=== PATIENT | male | born 1970 | race Caucasian/White ===

== ENCOUNTER 2018-01-30 14:29 | Inpatient (IN) | payer BC ==
[~2018-01-30 14:29] MED LIST: Iopamidol 370 76% 50 ML VIAL FS ONE
[2018-01-30 15:12] LABS: #Eosinphils 0.1 thou/uL (0.0-0.7); #Lymphocytes 0.9 thou/uL (1.20-3.40); #Monocytes 1.2 thou/uL (0.11-0.59); #Neutrophils 10.2 thou/uL (1.40-6.50); %Basophils 0.3 % (0.0-1.0); %Eosinophils 0.7 % (0.0-10.0); %Lymphocytes 7.2 % (21.0-51.0); %Monocytes 9.9 % (0.0-10.0); %Neutrophils 81.9 % (42.0-75.0); Hemoglobin 14.3 g/dL (14.0-18.0); Mean Corpuscular HGB CONC 32.7 g/dL (32.0-36.0); Mean Corpuscular Hemoglobin 27.8 pg (27.0-31.0); Mean Platelet Volume 9.3 fL (7.4-10.4); Platelet Count 279 thou/uL (130-400); RBC Distribution Width 13.1 % (11.5-14.5); Red Blood Cell (RBC) Count 5.13 mill/uL (4.70-6.10); White Blood Cell (WBC) Count 12.4 thou/uL (4.8-10.8)
[2018-01-30 15:35] LABS: ALT (SGPT) 27 U/L (8-55); AST (SGOT) 19 U/L (5-34); Albumin 3.6 g/dL (3.5-5.0); Alkaline Phosphatase 190 U/L (40-150); Anion Gap 13 mmol/L (10-20); BUN (Urea Nitrogen) 7 mg/dL (8.9-20.6); Bilirubin, Total 0.7 mg/dL (0.2-1.2); Calc. Creatinine Clearance 0 mL/min (70-130); Calcium 9.2 mg/dL (7.8-10.44); Carbon Dioxide 27 mmol/L (22-29); Chloride 100 mmol/L (98-107); Estimated GFR-MDRD Greater than 90; Globulin 3.5 g/dL (2.4-3.5); Glucose 124 mg/dL (70-105); Protein, Total 7.1 g/dL (6.0-8.3); Sodium 137 mmol/L (136-145)
[2018-01-30 15:43] LABS: Potassium 2.8 mmol/L (3.5-5.1)
[2018-01-30 16:52] LABS: Bilirubin Negative (Negative); Blood, Urine Negative (Negative); Clarity CLEAR (Clear); Glucose, Urine (Dipstick) Negative (Negative); Leukocyte Negative (Negative); Nitrite Negative (Negative); Protein, Urine (Dipstick) Negative (Neg-Trace); Specific Gravity, Urine 1.016 (1.002-1.036); Urobilinogen 0.2 mg/dL (0.2-1.0)
[2018-01-30] MEDS ORDERED: Famotidine/PF 20 mg/2ml Vial ONE (17:11)
[2018-01-30] MEDS ORDERED: diphenhydrAMINE 50 MG/ML VIAL ONE (17:11)
[2018-01-30] MEDS ORDERED: methylPREDNISolone Sod Succ/PF 125 MG/2 ML VIAL ONE ×2 (17:11→17:12)
[2018-01-30] MEDS ORDERED: Morphine 4 MG/ML VIAL ONE ×2 (17:21→20:17)
[2018-01-30 18:31] LABS: PTT 33.9 SEC (22.9-36.1); Prothrombin Time 13.7 SEC (12.0-14.7)
--- NOTE | 2018-01-30 18:42 | CT ---
NONCONTRAST CT ABDOMEN AND PELVIS: Date: 01/30/18 HISTORY: Complicated diverticulitis. Patient has had abdominal pain for 2 weeks. Patient reports bruising to l eft lower quadrant of the abdomen. COMPARISON: None available. FINDINGS: Rectal contrast was administered during the exam, but contrast only extends to the region of the junc tion of the distal descending colon and sigmoid colon. There is evidence of colonic diverticulosis wi th colonic diverticulitis seen in the distal descending colon and proximal sigmoid colon. There is mi ld thickening of the alcantara of the colon at the level of the junction of the distal descending colon a nd rectum. There are mild pericolonic inflammatory changes seen adjacent to the sigmoid colon. There is a fluid and air collection seen in the left anterolateral aspect of the left lower quadrant/ upper pelvis, with this collection measuring approximately 9.5 cm x 7.6 cm x 5.0 cm maximal dimension . This is worrisome for abscess collection given foci of gas. There is a small pericardial effusion. There is a small right pleural effusion with very tiny left pleural effusion. Atelectasis is present at each lung base. There is diminished attenuation of the liver suggesting diffuse fatty infiltration. The liver is enla rged in craniocaudal dimensions measuring 20.0 cm. There is a fat density area seen within the posterior aspect mid portion left kidney measuring 12.0 m m, which may represent either a peripherally located small angiomyolipoma or peripheral defect relate d to an area of scarring. There is no hydronephrosis, and no renal or ureteral calculi are seen. The spleen, pancreas, bilateral adrenal glands, and urinary bladder have a normal CT appearance. The appendix appears to be normal in caliber. There are minimal inflammatory changes seen in this reg ion, but these are primarily related to a region of the colon. There is a small, fat-containing right inguinal hernia. Degenerative changes seen in the lower thoracic spine. IMPRESSION: 1. Limited examination secondary to lack of intravenous contrast. 2. Rectal contrast was administered during this exam, and contrast only extends to the level of the proximal sigmoid colon. Colon in this region does appear to be mildly thickened with colonic divertic kingsley seen. There are mild inflammatory changes adjacent to this region within the left aspect of the p brielle, and findings may be related to diverticulitis. 3. Fluid and air collection seen in the anterolateral aspect of the left lower quadrant/upper pelvis , likely related to abscess collection. 4. Small right pleural effusion with tiny left pleural effusion and atelectasis. 5. Tiny pericardial effusion. 6. Hepatomegaly with fatty infiltration of the liver. 7. Small, fat-containing umbilical hernia and small fat-containing right inguinal hernia. POS: [facility]
[2018-01-30] MEDS ORDERED: metroNIDAZOLE 500 MG in Premix Bag 1 BAG IVPB SCH (19:00)
[2018-01-30] MEDS ORDERED: Piperacillin/Tazobactam 4.5 GM in Sodium Chloride 0.9% 100 ML IVPB SCH (19:00)
[2018-01-30] MEDS ORDERED: Ondansetron HCl/PF 4 MG/2 ML Vial IVP PRN (20:51)
[2018-01-30] MEDS ORDERED: Ondansetron ODT 4 MG TAB SL PRN (20:51)
[2018-01-30] MEDS ORDERED: Acetaminophen 325 MG TAB PO PRN (20:51)
[2018-01-30] MEDS ORDERED: HYDROcodone/Acetaminophen 5/325 mg Tablet PO PRN ×2 (20:51)
[2018-01-30] MEDS: NS 0.9% w/ 20 MEQ KCL 1,000 ML IV SCH (22:30)
[2018-01-30 22:47] VITALS: BMI 43.3
[2018-01-30] MEDS ORDERED: Morphine 4 MG/ML VIAL IV PRN (23:48)
[2018-01-31] MEDS: Morphine 4 MG/ML VIAL IV PRN ×9 (00:08→23:10)
[2018-01-31] MEDS: D5 1/2 NS w/20 mEq KCL 1,000 ML IV SCH ×4 (06:15→21:13)
[2018-01-31] MEDS: NS 0.9% w/ 20 MEQ KCL 1,000 ML IV SCH (08:22)
[2018-01-31] MEDS ORDERED: Potassium Chloride 20 MEQ/100 ML PREMIX BAG IVPB SCH (09:15)
--- NOTE | 2018-01-31 09:24 | HP ---
CHIEF COMPLAINT: Left lower quadrant abdominal pain. HISTORY OF PRESENT ILLNESS: Patient is a 47-year-old male with a 3-week history of left lower quadra nt abdominal pain. He went to the [facility] ER and was diagnosed with diverticulitis. He was given or al antibiotics and ibuprofen. He had a follow up with Dr. Lopez in GI. He was not getting better, so he increased the antibiotics, continued to get worse. Apparently, had an allergic reaction to the I V contrast from the CT scan that showed he had diverticulitis and developed a rash that was pruritic that he scratched it. He has had low grade fevers. He says that he has been having loose stools. PAST MEDICAL HISTORY: Significant for obesity and hypertension. PAST SURGICAL HISTORY: He has had back surgery, knee surgery and hernia surgery. MEDICATIONS: He is on lisinopril. Also, he is on metronidazole and something else. SOCIAL HISTORY: He has an allergy to IV DYE. SOCIAL HISTORY: Single. 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 No tobacco, occasional alcoho l. FAMILY HISTORY: Prostate cancer, heart disease, and diverticulitis. PHYSICAL EXAMINATION: VITAL SIGNS: Temperature 97.8, pulse 60, blood pressure 136/86. GENERAL: He is a morbidly obese male lying still in no apparent distress. HEENT: Unremarkable. LUNGS: Clear. HEART: Regular rate and rhythm. ABDOMEN: Obese. He has multiple scratch aburto and punctate pustules that he scratched. He has a la rge 15 cm erythematous ecchymosis in the left lower quadrant, it is mildly tender. IMAGING DATA AND LABORATORY DATA: He had a CT scan showing that he has 9 cm abscess just under the f ascia in the left lower quadrant where this rash is. His white count is 12.4, hemoglobin and hemato crit 14 and 45, platelet count 279. Electrolytes show an elevated glucose of 124, but low potassium at 2.8. ASSESSMENT: Diverticular abscess, hypokalemia, and morbid obesity. PLAN: Percutaneous drainage of abscess, antibiotics, bowel rest.
[2018-01-31] MEDS: Potassium Chloride 20 MEQ, Admixture Fee 1 EACH in Sodium Chloride 0.9% 100 ML IVPB SCH ×2 (10:10→18:36)
[2018-01-31] MEDS ORDERED: Midazolam HCl 2 mg/2 ml Vial ONE (12:55)
[2018-01-31] MEDS ORDERED: Fentanyl 100 MCG/2 ML VIAL ONE (12:55)
[2018-01-31] MEDS ORDERED: Meropenem 2 GM in Admixture Fee 1 EACH IVPB SCH (14:00)
[2018-01-31] MEDS: Meropenem 2 GM, Admixture Fee 1 EACH in Sodium Chloride 0.9% 100 ML IVPB SCH ×2 (14:49→21:06)
[2018-01-31 15:36] LABS: BF Color White; Clarity Cloudy/Turbid (Clear)
[2018-01-31 15:37] LABS: BF WBC/Nonhematics Ct. - Manua 984000 /cumm; RBC Count-Automated 1090000 /cumm; Tube # EDTA; WBC Background Count 0.01
[2018-02-01] MEDS: Potassium Chloride 20 MEQ, Admixture Fee 1 EACH in Sodium Chloride 0.9% 100 ML IVPB SCH ×2 (01:08→11:57)
[2018-02-01] MEDS: Morphine 4 MG/ML VIAL IV PRN ×8 (01:16→23:03)
[2018-02-01] MEDS: Meropenem 2 GM, Admixture Fee 1 EACH in Sodium Chloride 0.9% 100 ML IVPB SCH ×3 (05:14→21:33)
[2018-02-01] MEDS: D5 1/2 NS w/20 mEq KCL 1,000 ML IV SCH ×3 (05:20→23:08)
--- NOTE | 2018-02-01 10:34 | PRG ---
DATE OF SERVICE: 02/01/2018 The patient is feeling much better since abscess has been drained, still has some local tenderness. He is tolerating ice chips and sips. He is ambulating. PHYSICAL EXAMINATION: VITAL SIGNS: Temperature is 97.6, pulse 65, blood pressure 134/85. He has had out [address] loomis. On examination the actual cellulitis is significantly improved, but he has a different type of rash a cross his lower abdomen that looks more like rash he has on other parts of his body as a result of a contrast allergy, but is not tender. He is feeling better. The plan is to start him on clear liquids, keep ambulating. Continue drainage. Continue antibiotics .
[2018-02-01] MEDS: Enoxaparin Sodium 40 MG/0.4 ML SYRINGE SC SCH (19:50)
[2018-02-02] MEDS: Morphine 4 MG/ML VIAL IV PRN ×7 (03:23→22:32)
[2018-02-02] MEDS: D5 1/2 NS w/20 mEq KCL 1,000 ML IV SCH ×3 (06:39→21:14)
[2018-02-02] MEDS: Meropenem 2 GM, Admixture Fee 1 EACH in Sodium Chloride 0.9% 100 ML IVPB SCH ×3 (06:39→21:14)
[2018-02-02 08:13] LABS: Anion Gap 11 mmol/L (10-20); BUN (Urea Nitrogen) 10 mg/dL (8.9-20.6); Calc. Creatinine Clearance 218 mL/min (70-130); Calcium 8.3 mg/dL (7.8-10.44); Carbon Dioxide 29 mmol/L (22-29); Chloride 101 mmol/L (98-107); Estimated GFR-MDRD Greater than 90; Glucose 114 mg/dL (70-105); Potassium 3.2 mmol/L (3.5-5.1); Sodium 138 mmol/L (136-145)
[2018-02-02 08:28] LABS: Hemoglobin 13.7 g/dL (14.0-18.0); Mean Corpuscular Hemoglobin 28.1 pg (27.0-31.0); Mean Corpuscular Volume 85.1 fl (80.0-94.0); Mean Platelet Volume 9.1 fL (7.4-10.4); Platelet Count 278 thou/uL (130-400); RBC Distribution Width 13.3 % (11.5-14.5); Red Blood Cell (RBC) Count 4.89 mill/uL (4.70-6.10)
[2018-02-02 09:28] LABS: Band 3 % (5-11); Lymphocytes 21 % (21-51); MDiff Complete? YES; Metamyelocyte 2 % (0-0); Monocytes 4 % (0-10); Neutrophil 69 % (42-75); RBC Morphology Normal; Reactive Lymphocytes 1 % (0-10)
--- NOTE | 2018-02-02 10:15 | CT ---
CT GUIDED PERITONEAL ABSCESS DRAINAGE: HISTORY: Diverticular abscess. COMPARISON: CT prior day, 01/30/18. FINDINGS: The patient is brought to the CT suite. All questions were answered. Informed consent was obtained. Timeout was performed. The patient's left lower quadrant of the abdomen was prepped and draped in normal sterile fashion. A pproximately 4 mL of Lidocaine was instilled into the superficial and deep soft tissues. Using a 17-gauge introducer, the abscess was accessed. Over a wire, a fascia dilator was used to dil ate the soft tissues. Subsequently, an 8 British drain was placed. 20 mL of purulent fluid was aspir ated. The drain was actively draining during the examination. IMPRESSION: Technically successful CT-guided drainage placement. POS: [facility]
[2018-02-02] MEDS: Enoxaparin Sodium 40 MG/0.4 ML SYRINGE SC SCH (19:54)
[2018-02-03] MEDS: Morphine 4 MG/ML VIAL IV PRN ×6 (01:21→20:26)
[2018-02-03] MEDS: Meropenem 2 GM, Admixture Fee 1 EACH in Sodium Chloride 0.9% 100 ML IVPB SCH ×3 (06:13→21:51)
[2018-02-03] MEDS: D5 1/2 NS w/20 mEq KCL 1,000 ML IV SCH ×2 (09:47→17:52)
[2018-02-03] MEDS: Enoxaparin Sodium 40 MG/0.4 ML SYRINGE SC SCH (20:28)
[2018-02-04] MEDS: D5 1/2 NS w/20 mEq KCL 1,000 ML IV SCH ×4 (00:10→15:02)
[2018-02-04] MEDS: Morphine 4 MG/ML VIAL IV PRN ×6 (00:15→21:23)
[2018-02-04] MEDS: Meropenem 2 GM, Admixture Fee 1 EACH in Sodium Chloride 0.9% 100 ML IVPB SCH ×3 (05:06→21:22)
--- NOTE | 2018-02-04 10:28 | CT ---
CT ABDOMEN AND PELVIS WITHOUT CONTRAST: Date: 02/04/18 HISTORY: Abscess follow-up. FINDINGS: Comparison made with exam of 01/30/18. There has been interval placement of a left lower quadrant drainage catheter in the 7.6 x 5.0 x 9.5 cm abscess in the anterolateral aspect of the left lower quadrant/upper pelvis noted on the previous study. There is significant interval improvement with a residual 2.7 x 1.0 x 5.2 cm abscess on the cu rrent study. Colonic diverticulosis again seen. No new abscess is identified Small foci of air in the subcutaneous fat are likely due to injections. Small right pleural effusion is again noted. No free intraperitone al air or fluid is identified. Fatty infiltration of the liver is again seen. 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 There are degenerative changes in the spine. There is no evidence of aneurysmal dilatation of the abdominal aorta. No urinary tract asim culi or obstruction seen. IMPRESSION: Significant interval reduction in size of the left lower quadrant abscess since 01/30/[address] acement of a drainage catheter. POS: [facility]
[2018-02-04] MEDS: Enoxaparin Sodium 40 MG/0.4 ML SYRINGE SC SCH (21:22)
[2018-02-05] MEDS: Morphine 4 MG/ML VIAL IV PRN ×4 (01:04→11:33)
[2018-02-05] MEDS: D5 1/2 NS w/20 mEq KCL 1,000 ML IV SCH ×2 (01:29→08:19)
[2018-02-05] MEDS: Meropenem 2 GM, Admixture Fee 1 EACH in Sodium Chloride 0.9% 100 ML IVPB SCH ×2 (05:22→13:03)
--- NOTE | 2018-02-05 12:07 | DIS ---
DATE OF ADMISSION: 01/30/2018 DATE OF DISCHARGE: 02/05/2018 ADMIT DIAGNOSIS: Acute diverticulitis with abscess. DISCHARGE DIAGNOSIS: Acute diverticulitis with abscess. PROCEDURES PERFORMED: Percutaneous drainage of abdominal abscess by Interventional Radiology. STAFF: Balta Gaming M.D. CONDITION AT DISCHARGE: Improved. HOSPITAL COURSE: See hospital chart for details of hospitalization. FOLLOWUP: The patient to follow up with Dr. Gaming on . DISCHARGE MEDICATIONS: Prescriptions given for Levaquin, Flagyl, Ultram and Zofran.
[2018-02-05 12:15] VITALS: BP 143/93; TEMP 97.8
== END 2018-02-05 14:17 | disposition home or self-care (01) | DRG 392 ==
LOC: ERS 14:29 → SURG B 22:13
PROVIDERS: ADMIT Surgery; ATTEND Surgery
PROC: 0J9830Z Drainage of Abdomen Subcutaneous Tissue and Fascia with Drainage Device, Percutaneous Approach (ICD-10-PCS; principal; 2018-01-30)
DX: K57.20 Diverticulitis of large intestine with perforation and abscess without bleeding (principal); E66.01 Morbid (severe) obesity due to excess calories; L02.211 Cutaneous abscess of abdominal wall; Z68.41 Body mass index [BMI] 40.0-44.9, adult; L03.311 Cellulitis of abdominal wall; I10 Essential (primary) hypertension; E87.6 Hypokalemia; L27.1 Localized skin eruption due to drugs and medicaments taken internally; T50.8X5A Adverse effect of diagnostic agents, initial encounter; F17.210 Nicotine dependence, cigarettes, uncomplicated; Z91.041 Radiographic dye allergy status
CPT/HCPCS: 36415; 49020; 74176; 77002; 80048; 80053; 81003; 83690; 85025; 85060; 85610; 85730; 87070; 87077; 87186; 87205; 89051; 96361; 96365; 96367; 96375; 96376; 99406; A4216; C1729; J1200; J1650; J2185; J2250; J2270; J2543; J2930; J3010; J3480; J7050; S0028

== ENCOUNTER 2018-03-08 07:54 | Outpatient (CLI) | payer BC, OTHER ==
--- NOTE | 2018-03-08 10:48 | CT ---
ABDOMEN AND PELVIS CT SCAN WITH IV CONTRAST: History: 47-year-old male with history of colonic diverticulitis. Right lower abdominal pain for 1.5 months. A bscess on the left side has been drained. Comparison: 02-04-18 FINDINGS: The lung bases are clear. There is some fatty change in the liver. The gallbladder, pancreas, spleen, and adrenal glands are unremarkable. There is small focal scar in the posterior aspect of the mid le ft kidney. No renal calculus or acute obstruction. Normal appearing appendix. There is some minima l scattered colonic diverticulosis without acute diverticulitis. The previously noted abscess has res olved when compared to the prior 02-04-18 study. A slightly fatty right inguinal canal. IMPRESSION: No CT evidence for acute process. No abscess or abnormal fluid collection. Previously noted left side d abscess appears to have been completely drained with no significant residual. Normal appearing appe ndix. Somewhat fatty right inguinal canal. Fatty changes of the liver. Stable left renal scar. No new mass, abscess, or abnormal fluid collection or other acute process. POS: [facility]
[2018-03-08] MEDS ORDERED: Iopamidol 370 76% 100 ML VIAL ONE (13:05)
== END 2018-03-08 07:55 | disposition home or self-care (01) ==
LOC: CT 07:54
PROVIDERS: ATTEND Surgery
DX: K57.32 Diverticulitis of large intestine without perforation or abscess without bleeding (principal); R10.30 Lower abdominal pain, unspecified
CPT/HCPCS: 74177

== ENCOUNTER 2018-03-24 15:43 | Outpatient (CLI) | payer BC ==
[2018-03-24 16:17] LABS: #Eosinphils 0.2 thou/uL (0.0-0.7); #Lymphocytes 1.9 thou/uL (1.20-3.40); #Monocytes 0.5 thou/uL (0.11-0.59); %Basophils 0.6 % (0.0-1.0); %Lymphocytes 28.2 % (21.0-51.0); %Monocytes 7.8 % (0.0-10.0); %Neutrophils 60.5 % (42.0-75.0); Hemoglobin 14.3 g/dL (14.0-18.0); Mean Corpuscular HGB CONC 32.6 g/dL (32.0-36.0); Mean Corpuscular Volume 85.8 fl (80.0-94.0); Mean Platelet Volume 9.8 fL (7.4-10.4); Platelet Count 223 thou/uL (130-400); RBC Distribution Width 13.4 % (11.5-14.5); Red Blood Cell (RBC) Count 5.11 mill/uL (4.70-6.10); White Blood Cell (WBC) Count 6.7 thou/uL (4.8-10.8)
[2018-03-24 16:24] LABS: Hemoglobin A1c 5.9 % (4.0-6.0)
[2018-03-24 16:38] LABS: ALT (SGPT) 17 U/L (8-55); AST (SGOT) 12 U/L (5-34); Albumin 3.9 g/dL (3.5-5.0); Alkaline Phosphatase 115 U/L (40-150); Anion Gap 11 mmol/L (10-20); BUN (Urea Nitrogen) 11 mg/dL (8.9-20.6); Bilirubin, Direct 0.1 mg/dL (0.1-0.3); Bilirubin, Total 0.3 mg/dL (0.2-1.2); Calc. Creatinine Clearance 0 mL/min (70-130); Calcium 8.7 mg/dL (7.8-10.44); Carbon Dioxide 24 mmol/L (22-29); Chloride 110 mmol/L (98-107); Estimated GFR-MDRD Greater than 90; Globulin 2.9 g/dL (2.4-3.5); Glucose 122 mg/dL (70-105); Potassium 3.7 mmol/L (3.5-5.1); Protein, Total 6.8 g/dL (6.0-8.3); Sodium 141 mmol/L (136-145)
== END 2018-03-24 15:44 | disposition home or self-care (01) ==
LOC: LABBT 15:43
PROVIDERS: ATTEND Surgery
DX: Z01.812 Encounter for preprocedural laboratory examination (principal); K57.92 Diverticulitis of intestine, part unspecified, without perforation or abscess without bleeding
CPT/HCPCS: 80053; 80076; 83036; 85025; 93005; 93010

== ENCOUNTER 2018-03-24 16:00 | Inpatient (IN) | payer BC, OTHER ==
[2018-03-24 16:14] VITALS: BMI 41.0
[2018-03-28] MEDS ORDERED: cefOXitin 2 GM in Sodium Chloride 0.9% 100 ML IVPB SCH (06:15)
[2018-03-28] MEDS ORDERED: Midazolam HCl 2 mg/2 ml Vial ONE ×2 (06:17→06:58)
[2018-03-28] MEDS ORDERED: Fentanyl 250 MCG/5 ML VIAL ONE (06:17)
[2018-03-28] MEDS ORDERED: Fentanyl 100 MCG/2 ML VIAL ONE ×4 (06:58→12:20)
[2018-03-28] MEDS ORDERED: Ketamine 50 MG/ML VIAL ONE (07:09)
[2018-03-28] MEDS ORDERED: Albumin 5% 500 ML ONE (07:09)
[2018-03-28] MEDS ORDERED: cefOXitin 2 GM VIAL ONE (08:12)
[2018-03-28] MEDS ORDERED: Bupivacaine/Epinephrine 0.25% 30 ML VIAL ONE (08:12)
[2018-03-28] MEDS ORDERED: Promethazine HCl 25 MG/ML VIAL SLOW IVP PRN (08:22)
[2018-03-28] MEDS ORDERED: Meperidine HCl/PF 25 MG/ML VIAL SLOW IVP PRN (08:22)
[2018-03-28] MEDS ORDERED: hydrALAZINE 20 MG/ML VIAL SLOW IVP PRN (09:57)
[2018-03-28] MEDS ORDERED: Morphine 4 MG/ML VIAL SLOW IVP PRN ×2 (09:57)
[2018-03-28] MEDS ORDERED: Promethazine HCl 25 MG/ML VIAL IM PRN (09:57)
[2018-03-28] MEDS ORDERED: Ondansetron HCl/PF 4 MG/2 ML Vial IVP PRN (09:57)
[2018-03-28] MEDS ORDERED: Insulin Regular 300 UNITS/3 ML VIAL ONE (10:28)
[2018-03-28] MEDS ORDERED: Glycopyrrolate 0.2 MG/ML 5 ML SYRINGE ONE (11:19)
[2018-03-28] MEDS ORDERED: Ondansetron HCl/PF 4 MG/2 ML Vial ONE (11:19)
[2018-03-28] MEDS ORDERED: Lidocaine 1% PF 5 ML VIAL ONE (11:19)
[2018-03-28] MEDS ORDERED: PHENYLEPHRINE-NS 100 MCG/ML 10 ML SYRINGE ONE (11:19)
[2018-03-28] MEDS ORDERED: Dexamethasone 20 MG/5 ML VIAL ONE (11:19)
[2018-03-28] MEDS ORDERED: PROPOFOL 200 MG/20 ML VIAL ONE (11:19)
[2018-03-28] MEDS ORDERED: Ketorolac Tromethamine 30 MG/ML VIAL ONE (11:19)
[2018-03-28] MEDS ORDERED: ePHEDrine/0.9% NaCl/PF SYRINGE 50 mg/10 ml ONE (11:19)
[2018-03-28] MEDS ORDERED: INSULIN REGULAR IVPB SCH (12:30)
[2018-03-28] MEDS ORDERED: SODIUM CHLORIDE IVPB SCH (12:30)
[2018-03-28] MEDS ORDERED: ADMIXTURE FEE IVPB SCH (12:30)
[2018-03-28] MEDS ORDERED: Bupivacaine HCl 0.5%/Epinephrine 1:200,000/PF 30 ml Vial ONE (12:31)
[2018-03-28] MEDS: Acetaminophen 1,000 MG in Premix Bag 1 BAG IVPB SCH ×3 (14:39→23:23)
[2018-03-28] MEDS: Morphine 4 MG/ML VIAL SLOW IVP PRN ×3 (14:40→20:51)
[2018-03-28] MEDS: Ketorolac Tromethamine 30 MG/ML VIAL IVP SCH ×3 (14:40→23:22)
[2018-03-28] MEDS: D5 1/2 NS w/20 mEq KCL 1,000 ML IV SCH ×2 (16:05→21:06)
[2018-03-28] MEDS: cefOXitin 2 GM in Sodium Chloride 0.9% 100 ML IVPB SCH ×2 (16:24→23:25)
--- NOTE | 2018-03-28 17:30 | OP ---
PREOPERATIVE DIAGNOSIS: History of diverticulitis with microperforation. SURGEON: Balta Gaming M.D. PROCEDURE PERFORMED: Laparoscopic sigmoid colectomy. INDICATIONS: This is a 47-year-old male, who had come in with a diverticular perforation and contain ed abscess that was percutaneously drained in January. He was treated with antibiotics and resolved. No evidence of inflammation on recent CT. FINDINGS: There was still some thickening of the sigmoid colon in the area, which was adherent to th e abdominal wall where the percutaneous drain had been. It was at mid sigmoid colon. PROCEDURE IN DETAIL: After informed consent was obtained, the patient was taken to the operating [facility] and given general endotracheal anesthesia. He has undergone a mechanical bowel prep at home. His abdomen was prepped and draped in usual fashion. He had had TAP blocks, so a 5-mm incision was perfo rmed right lateral wall. Veress needle inserted. Drop test performed. Pneumoperitoneum was created to a volume of 2 liters of carbon dioxide. Utilizing a bladeless 5-mm trocar and 0-degree laparosco pe, direct visual entry in the abdominal cavity was performed. Pneumoperitoneum was created to a pre ssure of 15 mmHg. Two 5-mm ports were placed, one in the right upper quadrant and one in the right l ower quadrant. The omentum was still attached to the abdominal wall, but it came down very easily. The mesentery was incised, and blunt and sharp dissection was used to try and locate the ureter. He was morbidly obese and I could not find the ureter, so I wanted to stay right close to the colon wall hand-assisted port in the left lower quadrant. This allowed me to very carefully dissect the mesentery and divided with the LigaSure. Distally, the colon was divided just above the rectum with a linear 60 mm green load stapler x2. Then, the mesentery further divided up to where the colon was normal and the colon was also mobilized along the white line of Toldt, then this colon was brought ou t through the hand-assisted port. A Chyna clamp was placed distally, it was divided with a knife an d then there were some bleeders that were ligated with 3-0 Vicryl ties. A 29 EEA anvil was then inse rted and brought out through the lateral wall and then the end of the colon was closed with a linear 60 mm green load stapler. Then, this anvil was inserted intra-abdominally and pneumoperitoneum reest ablished. My assistant strength coach went below and placed the EEA transanally and the spike was brought out mid s taple line. It was connected to the anvil, closed, held for 30 seconds, then fired, then removed ___ __ checked were both intact. The proximal colon was then clamped with fingers by grabbing it and ins ufflated with air with the proctoscope under water, there was no air leak. The colon decompressed. Hemostasis assured. A 12-mm port had been placed to replace the 5-mm port in the right lower quadran t. This was closed with a GraNee needle and 0 Vicryl suture. Hemostasis was assured. Trocars and r etractors removed. The abdominal wall was closed transversely in the left lower quadrant with a runn ing loop #1 PDS. Subcutaneous irrigated, hemostasis assured with electrocautery. Subcutaneous reapp roximated with interrupted 3-0 Vicryl. Skin closed with a running subcuticular 4-0 Rapide. Dermabon d applied. The patient tolerated the procedure well and was transferred to recovery in good conditio n. Sponge and needle count verified correct x2.
[2018-03-28] MEDS: Famotidine/PF 20 mg/2ml Vial SLOW IVP SCH (21:02)
[2018-03-28] MEDS: Famotidine 20 MG TAB PO SCH (21:02)
[2018-03-29] MEDS: Morphine 4 MG/ML VIAL SLOW IVP PRN ×8 (01:17→23:13)
[2018-03-29] MEDS: D5 1/2 NS w/20 mEq KCL 1,000 ML IV SCH (01:18)
[2018-03-29 04:42] LABS: #Lymphocytes 1.5 thou/uL (1.20-3.40); #Neutrophils 7.9 thou/uL (1.40-6.50); %Basophils 0.2 % (0.0-1.0); %Eosinophils 0.2 % (0.0-10.0); %Lymphocytes 14.7 % (21.0-51.0); %Monocytes 9.8 % (0.0-10.0); %Neutrophils 75.2 % (42.0-75.0); Hemoglobin 13.4 g/dL (14.0-18.0); Mean Corpuscular HGB CONC 32.6 g/dL (32.0-36.0); Mean Corpuscular Hemoglobin 27.6 pg (27.0-31.0); Mean Corpuscular Volume 84.6 fl (80.0-94.0); Mean Platelet Volume 9.9 fL (7.4-10.4); Platelet Count 214 thou/uL (130-400); RBC Distribution Width 13.2 % (11.5-14.5); Red Blood Cell (RBC) Count 4.87 mill/uL (4.70-6.10); White Blood Cell (WBC) Count 10.5 thou/uL (4.8-10.8)
[2018-03-29 04:50] LABS: Anion Gap 14 mmol/L (10-20); BUN (Urea Nitrogen) 16 mg/dL (8.9-20.6); Calc. Creatinine Clearance 180 mL/min (70-130); Carbon Dioxide 23 mmol/L (22-29); Chloride 103 mmol/L (98-107); Estimated GFR-MDRD 86; Potassium 3.2 mmol/L (3.5-5.1); Sodium 137 mmol/L (136-145)
[2018-03-29 04:51] LABS: Calcium 8.4 mg/dL (7.8-10.44); Glucose 129 mg/dL (70-105)
[2018-03-29] MEDS: Ketorolac Tromethamine 30 MG/ML VIAL IVP SCH ×4 (05:30→23:22)
[2018-03-29] MEDS: Acetaminophen 1,000 MG in Premix Bag 1 BAG IVPB SCH (05:30)
[2018-03-29] MEDS: Famotidine 20 MG TAB PO SCH ×2 (07:23→08:22)
[2018-03-29] MEDS ORDERED: Dextrose 5% in Water 1,000 ML IV PRN (07:42)
[2018-03-29] MEDS ORDERED: Dextrose 50% Abboject 50 ML SYRINGE SLOW IVP PRN (07:42)
[2018-03-29] MEDS: Enoxaparin Sodium 40 MG/0.4 ML SYRINGE SC SCH (08:22)
[2018-03-29] MEDS: Famotidine/PF 20 mg/2ml Vial SLOW IVP SCH ×2 (08:22→20:33)
[2018-03-29] MEDS: 1/2 NS w/KCL 20 mEq 1,000 ML IV SCH ×3 (08:23→23:26)
--- NOTE | 2018-03-29 08:32 | PRG ---
DATE OF SERVICE: 03/29/2018 The patient is postoperative day #1 from laparoscopic sigmoid colectomy. He is having moderate lower abdominal pain, no nausea or vomiting. He has been ambulating, he still has a Herr in place. PHYSICAL EXAMINATION: VITAL SIGNS: Temperature is 98, pulse 63, blood pressure 116/69. GENERAL: He is awake, alert, in no apparent distress. ABDOMEN: The incisions are healing well. There is no evidence of infection. No abdominal distention . Urine output is 900. LABORATORY DATA: His white count is 10, H&H 13 and 41, platelet count up 214. His glucose is 114. Electrolytes are fine. His potassium is a little low at 3.2. ASSESSMENT: Stable. PLAN: Sips of clear liquids, ambulate. We will transfer to the floor.
[2018-03-29] MEDS ORDERED: Insulin Glargine 4 UNITS in Pre-Filled Syringe 1 EACH SC SCH ×2 (12:00→15:30)
[2018-03-29] MEDS: Pantoprazole 40 MG VIAL IVP SCH (20:33)
[2018-03-30] MEDS: Morphine 4 MG/ML VIAL SLOW IVP PRN ×6 (01:33→21:39)
[2018-03-30] MEDS: Ketorolac Tromethamine 30 MG/ML VIAL IVP SCH ×3 (06:39→18:05)
[2018-03-30] MEDS ORDERED: Morphine 4 MG/ML VIAL SLOW IVP PRN ×2 (07:44)
[2018-03-30] MEDS: 1/2 NS w/KCL 20 mEq 1,000 ML IV SCH ×2 (08:43→16:27)
[2018-03-30] MEDS: Famotidine/PF 20 mg/2ml Vial SLOW IVP SCH ×2 (08:44→21:40)
[2018-03-30] MEDS: Enoxaparin Sodium 40 MG/0.4 ML SYRINGE SC SCH (09:15)
[2018-03-30] MEDS ORDERED: HYDROcodone/Acetaminophen 10/325 mg Tablet PO PRN (15:58)
[2018-03-30] MEDS: HYDROcodone/Acetaminophen 10/325 mg Tablet PO PRN (19:33)
[2018-03-30] MEDS: Pantoprazole 40 MG VIAL IVP SCH (21:40)
[2018-03-31] MEDS: 1/2 NS w/KCL 20 mEq 1,000 ML IV SCH ×3 (00:42→13:40)
[2018-03-31] MEDS: Ketorolac Tromethamine 30 MG/ML VIAL IVP SCH ×3 (00:43→14:11)
[2018-03-31] MEDS: HYDROcodone/Acetaminophen 10/325 mg Tablet PO PRN ×3 (00:43→09:41)
[2018-03-31 05:48] LABS: #Eosinphils 0.2 thou/uL (0.0-0.7); #Lymphocytes 1.6 thou/uL (1.20-3.40); #Monocytes 0.9 thou/uL (0.11-0.59); #Neutrophils 5.8 thou/uL (1.40-6.50); %Basophils 0.3 % (0.0-1.0); %Eosinophils 2.5 % (0.0-10.0); %Lymphocytes 18.2 % (21.0-51.0); %Monocytes 11.1 % (0.0-10.0); Hemoglobin 13.1 g/dL (14.0-18.0); Mean Corpuscular HGB CONC 31.8 g/dL (32.0-36.0); Mean Corpuscular Hemoglobin 27.6 pg (27.0-31.0); Mean Corpuscular Volume 86.7 fl (80.0-94.0); Mean Platelet Volume 9.6 fL (7.4-10.4); Platelet Count 196 thou/uL (130-400); RBC Distribution Width 13.2 % (11.5-14.5); Red Blood Cell (RBC) Count 4.76 mill/uL (4.70-6.10); White Blood Cell (WBC) Count 8.5 thou/uL (4.8-10.8)
[2018-03-31] MEDS: Enoxaparin Sodium 40 MG/0.4 ML SYRINGE SC SCH (09:42)
[2018-03-31] MEDS: Famotidine/PF 20 mg/2ml Vial SLOW IVP SCH (09:42)
--- NOTE | 2018-03-31 11:40 | DIS ---
DISCHARGE DIAGNOSIS: Recurrent diverticulitis with microperforation. PROCEDURES DURING ADMISSION: Laparoscopic sigmoid colectomy. HOSPITAL COURSE: The patient was admitted, given a bowel prep, taken to the operating room where he underwent a sigmoid colectomy. Postoperatively, has done well. His bowel function has returned. He is tolerating his diet. His pain is controlled on oral medications. He is discharged home in good condition on hydrocodone and Zofran and follow up with me in 2 weeks.
[2018-03-31 11:47] VITALS: BP 136/88; TEMP 98.1
== END 2018-03-31 15:30 | disposition home or self-care (01) | DRG 330 ==
LOC: SURG A 03-28 05:43 → IMCU/EMU 03-28 13:29 → SURG A 03-29 14:39
PROVIDERS: ADMIT Surgery; ATTEND Surgery
PROC: 0DTN0ZZ Resection of Sigmoid Colon, Open Approach (ICD-10-PCS; principal; 2018-03-28)
DX: K57.21 Diverticulitis of large intestine with perforation and abscess with bleeding (principal); Z68.41 Body mass index [BMI] 40.0-44.9, adult; K57.92 Diverticulitis of intestine, part unspecified, without perforation or abscess without bleeding; I10 Essential (primary) hypertension; E78.5 Hyperlipidemia, unspecified; E66.01 Morbid (severe) obesity due to excess calories; R00.1 Bradycardia, unspecified; F17.210 Nicotine dependence, cigarettes, uncomplicated; Z79.899 Other long term (current) drug therapy; Z91.041 Radiographic dye allergy status
CPT/HCPCS: 36415; 36416; 80048; 85025; 88307; C9113; J0131; J0670; J0694; J1100; J1650; J1815; J1885; J2001; J2250; J2270; J2405; J2704; J3010; J7050; P9045; S0028

== ENCOUNTER 2018-05-12 07:29 | Outpatient (CLI) | payer BC ==
--- NOTE | 2018-05-12 08:56 | CT ---
ABDOMEN AND PELVIS CT WITH CONTRAST: COMPARISON: 03/08/18. INDICATION: Left lower quadrant pain. FINDINGS: No acute abnormalities within the imaged lung bases. There is hepatic steatosis. There is parenchym al atrophy of the pancreas with fatty replacement, similar appearing. No evidence of adrenal mass. Fat-containing lesion of the posterolateral left kidney is compatible with an angiomyolipoma., stable -appearing. Anastomotic suture is seen at the sigmoid colon without associated inflammation. There is no free fluid or free air. The left hemicolon is underdistended with associated wall prominence. Contrast-opacified small bowel is normal in caliber. Imaged aorta is normal caliber. There is scar ring of the subcutaneous tissues of the anterolateral left lower abdomen. IMPRESSION: 1. Postoperative abdomen, without acute abnormality visualized. 2. Additional details are described above. POS: [facility]
[2018-05-12] MEDS ORDERED: Iopamidol 370 76% 100 ML VIAL ONE (12:52)
== END 2018-05-12 07:30 | disposition home or self-care (01) ==
LOC: CT 07:29
PROVIDERS: ATTEND Surgery
DX: R10.32 Left lower quadrant pain (principal); K76.0 Fatty (change of) liver, not elsewhere classified; K86.89 Other specified diseases of pancreas; N28.9 Disorder of kidney and ureter, unspecified; Z98.890 Other specified postprocedural states
CPT/HCPCS: 74177

== ENCOUNTER 2018-08-30 08:41 | Outpatient (CLI) | payer BC ==
--- NOTE | 2018-08-30 12:44 | CT ---
CT ABDOMEN AND PELVIS WITH IV CONTRAST: INDICATIONS: Diverticulitis. Abdominal pain. COMPARISON: CT abdomen and pelvis, dated 05/12/2018. TECHNIQUE: Multiple axial tomograms obtained through the abdomen and pelvis with IV enhancement. Oral contrast was administered. FINDINGS: The lung bases are clear. The liver, spleen, and pancreas are unremarkable. The adrenal glands are normal. Fat-containing mass, posterior left renal cortex, consistent with angiomyolipoma, is again seen and h as been previously described. The kidneys are otherwise unremarkable. Small bowel loops appear normal. The colon is unremarkable. Postoperative anastomotic change is seen in the upper sigmoid, as describ ed previously. There are a few scattered tiny diverticula. No CT evidence of diverticulitis. The aorta is of normal caliber. No adenopathy. Images through the pelvis show a mildly distended bladder, unremarkable. The prostate is unremarkabl e. IMPRESSION: No CT evidence of diverticulitis. No other acute process apparent. POS: [facility]
== END 2018-08-30 08:42 | disposition home or self-care (01) ==
LOC: CT 08:41
PROVIDERS: ATTEND Surgery
DX: K57.92 Diverticulitis of intestine, part unspecified, without perforation or abscess without bleeding (principal)
CPT/HCPCS: 74177

== ENCOUNTER 2020-03-25 08:31 | Outpatient (CLI) | payer BC ==
--- NOTE | 2020-03-25 10:43 | MRI ---
MRI RIGHT KNEE WITHOUT CONTRAST: HISTORY: Osteoarthritis of the knee. COMPARISON: Radiographs 03/18/2020. FINDINGS: MEDIAL MENISCUS: There is a radio-oblique tear medial meniscal body extending to the anterior horn w ith truncation and volume loss of the medial meniscal body. There is displacement of the free edge l aterally into the joint space. LATERAL MENISCUS: Intact. There is high-grade mucinous degeneration anterior cruciate ligament with large ganglion pseudocyst a t the proximal lateral femoral condylar origin measuring 2 cm x 2.3 cm. The PCL is intact. MCL and LCL are intact. EXTENSOR MECHANISM: The quadriceps tendon and patella and patella tendon are intact with low-grade p roximal patella tendinosis. CARTILAGE: PATELLOFEMORAL COMPARTMENT: There is a large cartilage defect of the medial patella facets which his chronic in nature at the interpolar region measuring 1 cm in transverse with a craniocaudal dimensio n of 12 mm. There is high-grade chondral delamination of the central trochlea. MEDIAL COMPARTMENT: Mild chondral fraying anterior weightbearing surface medial femoral condyle. LATERAL COMPARTMENT: Intact. MUSCLES: Muscle signal and bulk is normal. SOFT TISSUES: Large pseudocyst posteriorly at the ACL origin. IMPRESSION: 1. Displaced radial oblique tear of the medial meniscus with tissue displaced into the joint space. This involves the free edge and intermediate zone. The tear extends from the body to the anterior h orn-body junction. 2. High-grade mucinous degeneration anterior cruciate ligament with extrusion of a ganglion pseudocy st posteriorly along the proximal fibers. 3. Full-thickness chondral defect, chronic, with mild sclerosis of the medial patellar facet measuri ng a centimeter in transverse x 12 mm in craniocaudal dimension. 4. 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 POS: [facility]
== END 2020-03-25 08:32 | disposition home or self-care (01) ==
LOC: SCSMRI 08:31
PROVIDERS: ATTEND Orthopaedic Surgery
DX: M17.11 Unilateral primary osteoarthritis, right knee (principal); S83.241A Other tear of medial meniscus, current injury, right knee, initial encounter; M94.261 Chondromalacia, right knee; M22.8X1 Other disorders of patella, right knee; M67.461 Ganglion, right knee